=== PATIENT | female | born 1995 | race Caucasian/White ===

== ENCOUNTER 2017-08-14 14:29 | Emergency (ER) | payer BC ==
[~2017-08-14] VITALS: Ht 157.5 cm; Wt 47.5 kg
[2017-08-14] MEDS ORDERED: SODIUM CHLORIDE 0.9% 1000ML 1,000 ML IV STA ×2 (14:38→18:13)
[2017-08-14 14:39] VITALS: Ht 157.5 cm; Wt 47.5 kg
[2017-08-14 14:45] VITALS: O2SAT 96
[2017-08-14 15:28] LABS: BASO % 0.1 %; BASO ABS # 0.01 K/uL (0-0.2); EOS % 0.7 %; EOS ABS # 0.06 K/uL (0-0.5); HEMATOCRIT 40.8 % (37-47); HEMOGLOBIN 14.2 g/dL (12.0-16.0); LYMPH % 22.5 %; LYMPH ABS # 1.85 K/uL (1.2-3.4); MEAN CELL VOLUME 87.4 fL (80-100); MEAN CORPUSCULAR HEMOGLOBIN 30.4 pg (25-34); MEAN CORPUSCULAR HGB CONC 34.8 g/dl (32-36); MEAN PLATELET VOLUME 10.5 fL (7.4-10.4); MONO % 8.5 %; NEUT % 68.2 %; NEUT ABS # 5.62 K/uL (1.4-6.5); PLATELET COUNT 199 K/uL (130-400); RED CELL DISTRIBUTION WIDTH CV 12.6 % (11.5-14.5); RED CELL DISTRIBUTION WIDTH SD 40.4 fL (36.4-46.3); WHITE BLOOD COUNT 8.24 K/uL (4.8-10.8)
[2017-08-14 15:45] LABS: ALBUMIN 4.2 gm/dl (3.4-5.0); ALT/SGPT 14 U/L (12-78); BLOOD UREA NITROGEN 8 mg/dl (7-18); CARBON DIOXIDE 23 mmol/L (21-32); CREATININE 0.79 mg/dl (0.60-1.20); GLUCOSE 86 mg/dl (70-99); LIPASE 97 U/L (73-393); POTASSIUM 3.4 mmol/L (3.5-5.1); SODIUM 139 mmol/L (136-145)
[2017-08-14 15:50] LABS: ALKALINE PHOSPHATASE 70 U/L (45-117); AST/SGOT 11 U/L (15-37); TOTAL PROTEIN 7.6 gm/dl (6.4-8.2)
--- NOTE | 2017-08-14 17:05 | EMERGENCY ROOM VISIT NOTE ---
History Report prepared by Ros: Eliot Garzon Under the Supervision of: Dr. Kushal Vasquez D.O. First contact with patient: 14:30 Stated Complaint: OVERDOSE History of Present Illness The patient is a 21 year old female who presents to the Emergency Room by EMS for evaluation of an intentional drug overdose occurring 30 minutes ago. She admits to taking 20 25 mg tablets of Benadryl today in an attempt to kill herself. EMS notes that the patient has been tachycardic. They are unaware of the patient taking any other drugs. The patient has no diagnosis of depression or anxiety. She currently complains of dizziness. She denies vomiting or headaches. The patient has not attempted to kill herself in the past, but has a history of burning herself. Source of History: patient Onset: 30 minutes ago Symptom Intensity: 20, 25 mg Benadryl tablets Quality: other (drug overdose) Timing: other (episode) Associated Symptoms: No headache, No vomiting Note: Additional symptoms: dizziness. Review of Systems See HPI for pertinent positives & negatives. A total of 10 systems reviewed and were otherwise negative. Past Medical & Surgical Medical Problems: (1) No Known Active Medical Problems Family History No pertinent family history stated. Social History Smokeless Tobacco Use: No Alcohol Use: none Drug Use: none Marital Status: single Occupation Status: [employer] student Current/Historical Medications No Active Prescriptions or Reported Meds Allergies Coded Allergies: No Known Allergies (Unverified , 08/14/17) Physical Exam Vital Signs Date Time Temp Pulse Resp B/P (MAP) Pulse Ox O2 Delivery O2 Flow Rate FiO2 08/14/17 17:30 130 16 126/82 98 Room Air 08/14/17 16:11 142 26 131/83 99 Room Air 08/14/17 14:45 96 Room Air 08/14/17 14:39 96 Room Air 08/14/17 14:39 36.3 134 18 142/82 96 Room Air 08/14/17 14:37 134 Physical Exam GENERAL: Patient is awake, alert, anxious and guarded appearing. EYES: The conjunctivae are clear. The pupils are round and reactive. EARS, NOSE, MOUTH AND THROAT: The nose is without any evidence of any deformity. Mucous membranes are moist tongue is midline NECK: The neck is nontender and supple. RESPIRATORY: Normal respiratory effort is noted there is no evidence of wheezing rhonchi or rales CARDIOVASCULAR: Tachycardic but regular. No definite murmur to auscultation. GASTROINTESTINAL: The abdomen is soft. Bowel sounds are present in all quadrants. Abdomen is nontender MUSCULOSKELETAL/EXTREMITIES: There is no evidence of gross deformity full range of motion is noted in the hips and shoulders SKIN: There is no obvious evidence of any rash. There are no petechiae, pallor or cyanosis noted. NEUROLOGIC: Patient is awake alert and oriented x3 strength is symmetric patellar reflexes are 2+ bilaterally PSYCH: Flat affect. Appears guarded. Short with answers. Currently admits to SI. Medical Decision & Procedures Laboratory Results 08/14/17 14:53 Red Blood Count 4.67, Mean Corpuscular Volume 87.4, Mean Corpuscular Hemoglobin 30.4, Mean Corpuscular Hemoglobin Concent 34.8, Mean Platelet Volume 10.5, Neutrophils (%) (Auto) 68.2, Lymphocytes (%) (Auto) 22.5, Monocytes (%) (Auto) 8.5, Eosinophils (%) (Auto) 0.7, Basophils (%) (Auto) 0.1, Neutrophils # (Auto) 5.62, Lymphocytes # (Auto) 1.85, Monocytes # (Auto) 0.70, Eosinophils # (Auto) 0.06, Basophils # (Auto) 0.01 08/14/17 14:53 Test 08/14/17 14:38 08/14/17 14:53 08/14/17 16:12 White Blood Count 8.24 K/uL (4.8-10.8) Red Blood Count 4.67 M/uL (4.2-5.4) Hemoglobin 14.2 g/dL (12.0-16.0) Hematocrit 40.8 % (37-47) Mean Corpuscular Volume 87.4 fL (80-100) Mean Corpuscular Hemoglobin 30.4 pg (25-34) Mean Corpuscular Hemoglobin Concent 34.8 g/dl (32-36) Platelet Count 199 K/uL (130-400) Mean Platelet Volume 10.5 fL (7.4-10.4) Neutrophils (%) (Auto) 68.2 % Lymphocytes (%) (Auto) 22.5 % Monocytes (%) (Auto) 8.5 % Eosinophils (%) (Auto) 0.7 % Basophils (%) (Auto) 0.1 % Neutrophils # (Auto) 5.62 K/uL (1.4-6.5) Lymphocytes # (Auto) 1.85 K/uL (1.2-3.4) Monocytes # (Auto) 0.70 K/uL (0.11-0.59) Eosinophils # (Auto) 0.06 K/uL (0-0.5) Basophils # (Auto) 0.01 K/uL (0-0.2) RDW Standard Deviation 40.4 fL (36.4-46.3) RDW Coefficient of Variation 12.6 % (11.5-14.5) Immature Granulocyte % (Auto) 0.0 % Immature Granulocyte # (Auto) 0.00 K/uL (0.00-0.02) Anion Gap 10.0 mmol/L (3-11) Est Creatinine Clear Calc Drug Dose 85.9 ml/min Estimated GFR () 125.8 Estimated GFR (Non- 108.5 BUN/Creatinine Ratio 10.6 (10-20) Osmolality 287 mOsm/kg (280-300) Calcium Level 9.0 mg/dl (8.5-10.1) Total Bilirubin 0.4 mg/dl (0.2-1) Direct Bilirubin 0.1 mg/dl (0-0.2) Aspartate Amino Transf (AST/SGOT) 11 U/L (15-37) Alanine Aminotransferase (ALT/SGPT) 14 U/L (12-78) Alkaline Phosphatase 70 U/L (45-117) Total Creatine Kinase 58 U/L (26-192) Troponin I < 0.015 ng/ml (0-0.045) Total Protein 7.6 gm/dl (6.4-8.2) Albumin 4.2 gm/dl (3.4-5.0) Lipase 97 U/L (73-393) Human Chorionic Gonadotropin, Qual NEG (NEG) Salicylates Level < 1.7 mg/dl (2.8-20) Acetaminophen Level < 2 ug/ml (10-30) Ethyl Alcohol mg/dL < 3.0 mg/dl (0-3) Urine Opiates Screen NEG (NEG) Urine Methadone, Qualitative NEG (NEG) Urine Barbiturates NEG (NEG) Urine Phencyclidine (PCP) Level NEG (NEG) Ur Amphetamine/Methamphetamine NEG (NEG) MDMA (Ecstasy) Screen NEG (NEG) Urine Benzodiazepines Screen NEG (NEG) Urine Cocaine Metabolite NEG (NEG) Urine Marijuana (THC) NEG (NEG) Laboratory results per my review. Medications Administered Medications (Trade) Dose Ordered Sig/Dwight Route Start Time Stop Time Status Last Admin Dose Admin Sodium Chloride 1,000 ml @ 999 mls/hr Q1H1M STAT IV 08/14/17 14:38 08/14/17 15:38 DC 08/14/17 15:03 999 MLS/HR Sodium Chloride 1,000 ml @ 999 mls/hr Q1H1M STAT IV 08/14/17 18:13 08/14/17 19:13 08/14/17 18:17 999 MLS/HR Ondansetron HCl (Zofran Inj) 4 mg NOW STAT IV 08/14/17 18:13 08/14/17 18:14 DC 08/14/17 18:17 4 MG ECG Per My Interpretation Indication: toxicologic Rate (beats per minute): 116 Rhythm: sinus tachycardia Findings: no ectopy, other (Diffuse T-wave abnormalities noted. ) Comparison ECG Date: no prior available ED Course 1432: The patient was evaluated in room B9. A complete history and physical examination were performed. 1438: Ordered NSS 1,000 ml @ 999 mls/hr IV. 1625: I checked in on the patient. She appears tired. Case discussed with Poison Control. They recommend holding the patient for 6-8 hours after ingestion. 1658: The patient was moved to room A8. 1800: The patient was signed out to Dr. Rubi at the change of shift pending mental health evaluation. Medical Decision Differential diagnosis: Etiologies such as toxicologic, infection, hypoglycemia, electrolyte abnormalities, cardiac sources, intracerebral event, neurologic, as well as others were entertained. Nursing notes reviewed. Additional history is obtained from the police as well as the prehospital personnel. The patient is a 21-year-old female who presented to the emergency department after a suicidal gesture. The patient took an extensive amount of Benadryl in attempt to harm herself. She continues to admit to suicidal ideation at this time. The patient was medically cleared in the emergency department but continues to be tachycardic. A consult was made to poison control and they recommended observing the patient for 6-8 hours. The patient was reevaluated multiple times. She was awake and alert. She had no complaints other than nausea. She continues have some degree of tachycardia. She was treated with IV fluids and IV Zofran. She was able to tolerate liquids. The patient's medical clearance is still pending at this time. For this reason the patient was signed out to Dr. Rubi at change of shift. Please see his note for continuation of care and final disposition. The patient was evaluated by the mental health spring encaser in the emergency department. Medication Reconcilliation Current Medication List: was personally reviewed by me Blood Pressure Screening Patient's blood pressure: Elevated blood pressure Blood pressure disposition: Elevated BP felt to be situational Impression Primary Impression: Suicide gesture Additional Impressions: benadryl overdose Suicidal ideation Scribe Attestation The scribe's documentation has been prepared under my direction and personally reviewed by me in its entirety. I confirm that the note above accurately reflects all work, treatment, procedures, and medical decision making performed by me. Departure Information Dispostion Still a Patient (Signed out to Dr. Rubi) Prescriptions No Active Prescriptions or Reported Meds Problem Qualifiers Primary Impression: Suicide gesture Encounter type: initial encounter Qualified Codes: X83.8XXA - Intentional self-harm by other specified means, initial encounter
[2017-08-14] MEDS ORDERED: ONDANSETRON INJ 2 MG/ML 2 ML VIAL ONE (18:13)
[2017-08-14] MEDS ORDERED: ONDANSETRON INJ 2 MG/ML 2 ML VIAL IV STA (18:13)
[2017-08-14 18:59] LABS: INR 1.1 (0.9-1.1); PTT PATIENT 32.7 SECONDS (21.0-31.0)
[2017-08-14 23:06] VITALS: TEMP 36.6
--- NOTE | 2017-08-15 02:06 | EMERGENCY ROOM VISIT NOTE ---
ED Visit Note The patient was signed out to me awaiting placement. The patient has been medically cleared. The patient has been accepted at [facility] at 4 AM if vital signs are stable and she is not tachycardic. Signed out to Dr. Wright at 2am.
--- NOTE | 2017-08-15 04:25 | EMERGENCY ROOM VISIT NOTE ---
ED Visit Note First contact with patient: 04:25 Patient seen and evaluated by psychiatric rn case manager hospice, [place], voluntary admission form signed. Patient to be transported to [facility]
[2017-08-15 06:24] VITALS: BP 121/76; PULSE 76; O2SAT 99
== END 2017-08-15 06:25 | disposition short-term general hospital (02) ==
LOC: C.EDB 14:31 → C.EDA 08-15 06:25
DX: T45.0X2A Poisoning by antiallergic and antiemetic drugs, intentional self-harm, initial encounter (principal); X83.8XXA Intentional self-harm by other specified means, initial encounter; R45.851 Suicidal ideations